=== PATIENT | female | born 1990 | race African-American/Black ===

== ENCOUNTER 2019-12-20 17:53 | Emergency (ER) | payer MEDICAID ==
[~2019-12-20] VITALS: Ht 160 cm; Wt 96.0 kg
[2019-12-20 17:58] VITALS: BP 149/98
== END 2019-12-20 20:36 | disposition left against medical advice (07) ==
LOC: ER 17:53
DX: M54.5 Low back pain (principal); Z53.21 Procedure and treatment not carried out due to patient leaving prior to being seen by health care provider